=== PATIENT | female | born 1955 | race Two or more races ===

== ENCOUNTER 2018-12-18 18:07 | Inpatient (IN) | payer MEDICARE, MEDICAID ==
[~2018-12-18] VITALS: Ht 121.9 cm; Wt 74.8 kg
--- NOTE | 2018-12-18 18:10 | NUR ---
ED Nurse Note: pt presents from home via [facility] for c/o generalized malaise and increased dyspnea today. pt reports she has not had dialysis since . pt sitting in high fowlers with accessory muscle use noted lungs dim bilat noted. pt with left BKA and right AKA. pt noted to have skin hot to touch. md made aware of oral temp and blood cultures with lactic acid also drawn and sent. pt tolerates all well. speaks full sentences with some increased dyspnea. pt placed on panel monitor and O2 N/C 4L as o2 sat was 82% on r/a. pt with improved saturation to 98% on O2. pt relates dialysis shunt is on right thigh.
[2018-12-18] MEDS ORDERED: Nitroglycerin 2% oint pkt TOPIC ONE (18:15)
[2018-12-18 18:30] VITALS: BP 205/76
--- NOTE | 2018-12-18 18:50 | Emergency Room Report ---
History of Present Illness General Chief Complaint: Abnormal Labs Source: Patient, EMS Present Illness HPI Patient has a history of dialysis. She is due to have dialysis tomorrow. Today she felt that she was choking and had anxiety regarding that. Is worse when she lays back. Paramedics felt that she was in no respiratory distress and felt that her lung sounds were clear. She denies fevers. She does break out in sweats on occasion. She denies chest pain. She does have significant swelling. She still makes urine and denies dysuria. She is moving her bowels without difficulty. She denies joint pain at this time. Her fistula is in the right groin. 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 No fevers, chills, sore throat, palpitations, nausea, vomiting, diarrhea, abdominal pain, joint pain, rashes, depression, anxiety, visual changes, headache. Allergies: Coded Allergies: No Known Allergies (Unverified , 12/18/18) Patient History Past Medical History: see triage record Social History: Denies: smoking, alcohol use Social History Narrative From home Reviewed Nursing Documentation: PMH: Agreed; PSxH: Agreed Nursing Documentation-PMH Past Medical History: No History, Except For Hx Dialysis: Yes Review of Systems All Other Systems: negative except mentioned in HPI Physical Exam Vital Signs Date Time Temp Pulse Resp B/P (MAP) Pulse Ox O2 Delivery O2 Flow Rate FiO2 12/18/18 18:08 86 23 232/113 (152) 90 Room Air Sp02 EP Interpretation: reviewed, abnormal - Interpreted as low by me General Appearance: alert, non-toxic, Chronically Ill Eyes: bilateral eye PERRL, bilateral eye conjunctivae pale, bilateral eye other - Exophthalmos and lid edema ENT: moist mucus membranes Neck: full range of motion, supple Respiratory: chest non-tender, decreased breath sounds Cardiovascular #1: regular rate, rhythm, no JVD - To the angle of jaw sitting up, edema - Anasarca Cardiovascular #2: 2+ radial (L) Gastrointestinal: non tender, soft, decreased bowel sounds, overweight Genitourinary: no CVA tenderness Musculoskeletal: other - BKA left AKA right with fistula Neurologic: alert, motor strength/tone normal, DTRs symmetric, sensory intact, speech normal, oriented - X2 Psychiatric: depressed affect Skin: pallor, other - Sallow Procedures Critical Care Time Critical Care Time Total Critical Care Time: 30 min bedside evaluation and treatment excludes procedures (EKG). Reason for critical care: Pulmonary edema and hyperkalemia with renal failure Possible complications: hypotension, hypertension, ME, shock, arrhythmias, metabolic acidosis, end organ damage, respiratory failure. Interventions: Lasix, albuterol, calcium, Kayexalate and arrangement for emergent dialysis, nitroglycerin paste Course: Patient presented with dyspnea. Evaluation revealed pulmonary edema. Treated with nitroglycerin paste and Lasix. Further evaluation with hyperkalemia which was treated. Patient somewhat improved on oxygen and after albuterol. EKG without peak T waves. Several discussions with [place] regarding whether the patient is transferable. Review of repeat labs. Determined to be non-transferable. Discussion with admitting physician. Discussion with building supplies salesperson retail. Consultations: nursing staff, EMS, [place] physician, admitting physician, building supplies salesperson retail Performed by: Dr. Galo Tolerated well condition = serious Medical Decision Making Diagnostic Impression: Primary Impression: Pulmonary edema Qualified Codes: J81.0 - Acute pulmonary edema Additional Impressions: Hyperkalemia End stage renal disease on dialysis Anasarca ER Course Dialysis patient presents with orthopnea and feeling of choking. Differential includes pulmonary edema, electrolyte imbalance, acute myocardial infarction amongst others. Patient will be evaluated EKG, chest x-ray and labs. She initially will be treated with nitroglycerin paste and consideration for Lasix that she still makes urine. Most likely the patient will need to have dialysis. EKG without injury no peaked T waves. Chest x-ray pulmonary edema. Labs with normal white count. Elevated potassium with renal failure. No acidosis. Elevated BNP. Normal troponin. Treated for hyperkalemia with albuterol, Kayexalate, Lasix and calcium. Cramps L thigh. Morphine given. Discussed with Dr. Bañuelos who requests repeat K. Repeat 6.6. He is discussing with building supplies salesperson retail. Hemming And Tacking Machine Operator denied transfer. Discussed with Dr. Tirado regarding admission. Discussed with Dr. Lyles regarding the need for urgent dialysis. Patient not produced urine after Lasix. Consideration that she may be an inaccurate historian. Patient improved but needing dialysis. Laboratory Tests Test 12/18/18 18:35 12/18/18 20:55 White Blood Count 11.2 K/UL (4.8-10.8) H Red Blood Count 3.76 M/UL (4.20-5.40) L Hemoglobin 11.2 G/DL (12.0-16.0) L Hematocrit 34.8 % (37.0-47.0) L Mean Corpuscular Volume 92 FL (80-99) Mean Corpuscular Hemoglobin 29.7 PG (27.0-31.0) Mean Corpuscular Hemoglobin Concent 32.1 G/DL (32.0-36.0) Red Cell Distribution Width 15.7 % (11.6-14.8) H Platelet Count 262 K/UL (150-450) Mean Platelet Volume 6.5 FL (6.5-10.1) Neutrophils (%) (Auto) 84.0 % (45.0-75.0) H Lymphocytes (%) (Auto) 6.1 % (20.0-45.0) L Monocytes (%) (Auto) 7.4 % (1.0-10.0) Eosinophils (%) (Auto) 0.9 % (0.0-3.0) Basophils (%) (Auto) 1.5 % (0.0-2.0) Prothrombin Time 13.6 SEC (9.30-11.50) H Prothrombin Time INR 1.3 (0.9-1.1) H PTT 33 SEC (23-33) Sodium Level 144 MMOL/L (136-145) 143 MMOL/L (136-145) Potassium Level 6.7 MMOL/L (3.5-5.1) *H 6.6 MMOL/L (3.5-5.1) *H Chloride Level 105 MMOL/L (98-107) 106 MMOL/L (98-107) Carbon Dioxide Level 23 MMOL/L (21-32) 22 MMOL/L (21-32) Anion Gap 16 mmol/L (5-15) H 16 mmol/L (5-15) H Blood Urea Nitrogen 80 mg/dL (7-18) H 80 mg/dL (7-18) H Creatinine 11.0 MG/DL (0.55-1.30) H 10.9 MG/DL (0.55-1.30) H Estimate Glomerular Filtration Rate 3.5 mL/min (>60) 3.6 mL/min (>60) Glucose Level 134 MG/DL (74-106) H 139 MG/DL (74-106) H Calcium Level 8.5 MG/DL (8.5-10.1) 8.8 MG/DL (8.5-10.1) Total Bilirubin 0.4 MG/DL (0.2-1.0) Aspartate Amino Transferase (AST) 18 U/L (15-37) Alanine Aminotransferase (ALT) 17 U/L (12-78) Alkaline Phosphatase 163 U/L (46-116) H Total Creatine Kinase 100 U/L (26-308) Troponin I 0.006 ng/mL (0.000-0.056) Pro-B-Type Natriuretic Peptide 88915 pg/mL (0-125) H Total Protein 7.1 G/DL (6.4-8.2) Albumin 4.1 G/DL (3.4-5.0) Globulin 3.0 g/dL Albumin/Globulin Ratio 1.4 (1.0-2.7) EKG Diagnostic Results Rate: normal Rhythm: NSR ST Segments: no acute changes - No peak T waves Rhythm Strip Diag. Results EP Interpretation: yes Rhythm: NSR, no PVC's, no ectopy Chest X-Ray Diagnostic Results Chest X-Ray Diagnostic Results : Chest X-Ray Ordered: Yes # of Views/Limited/Complete: 1 View Indication: Shortness of Breath EP Interpretation: Yes Interpretation: no consolidation, no effusion, no pneumothorax, other - Pulmonary edema Impression: Other Electronically Signed by: Electronically signed by Vipin Galo MD Last Vital Signs Date Time Temp Pulse Resp B/P (MAP) Pulse Ox O2 Delivery O2 Flow Rate FiO2 12/19/18 00:47 Nasal Cannula 4.0 12/19/18 00:00 98.7 82 20 166/65 (98) 98 12/18/18 23:18 21 Status: improved Disposition: ADMITTED INPATIENT Condition: Serious Scripts Unable to Obtain Active Prescriptions or Reported Meds Vipin Galo MD Dec 18, 2018 18:50
[2018-12-18 19:04] LABS: BASOPHILS % (AUTO) 1.5 % (0.0-2.0); EOSINOPHILS % (AUTO) 0.9 % (0.0-3.0); HEMATOCRIT 34.8 % (37.0-47.0); HEMOGLOBIN 11.2 G/DL (12.0-16.0); LYMPHOCYTES % (AUTO) 6.1 % (20.0-45.0); MEAN CORPUSCULAR VOLUME 92 FL (80-99); MONOCYTES % (AUTO) 7.4 % (1.0-10.0); PLATELET COUNT 262 K/UL (150-450); RED BLOOD COUNT 3.76 M/UL (4.20-5.40); RED CELL DISTRIBUTION WIDTH 15.7 % (11.6-14.8); WHITE BLOOD COUNT 11.2 K/UL (4.8-10.8)
[2018-12-18 19:07] LABS: INR 1.3 (0.9-1.1)
[2018-12-18 19:22] LABS: ALANINE AMINOTRANSFERASE 17 U/L (12-78); ALBUMIN 4.1 G/DL (3.4-5.0); ALBUMIN/GLOBULIN RATIO 1.4 (1.0-2.7); ALKALINE PHOSPHATASE 163 U/L (46-116); ANION GAP 16 mmol/L (5-15); ASPARTATE AMINO TRANSFERASE 18 U/L (15-37); BILIRUBIN,TOTAL 0.4 MG/DL (0.2-1.0); BLOOD UREA NITROGEN 80 mg/dL (7-18); CALCIUM 8.5 MG/DL (8.5-10.1); CARBON DIOXIDE 23 MMOL/L (21-32); CHLORIDE 105 MMOL/L (98-107); CREATINE KINASE 100 U/L (26-308); SODIUM 144 MMOL/L (136-145)
--- NOTE | 2018-12-18 19:23 | NUR ---
ED Nurse Note: pt with meds as noted. pt report given to oncoming rn.
[2018-12-18 19:24] LABS: POTASSIUM 6.7 MMOL/L (3.5-5.1)
[2018-12-18] MEDS ORDERED: Albuterol ud Inhalation HHN ONE (19:30)
[2018-12-18] MEDS ORDERED: Calcium Gluconate 1gm/10ml vial IVP ONE (19:30)
[2018-12-18] MEDS ORDERED: Sodium Polystyrene Sulfonate 15gm Powder ORAL ONE (19:30)
--- NOTE | 2018-12-18 19:30 | NUR ---
ED Nurse Note: pt unable to urinate at this time. will await further orders
[2018-12-18] MEDS ORDERED: Morphine Sulfate 2mg/ml Inj(IV/IM USE ONLY) IVP ONE (20:00)
[2018-12-18 20:13] VITALS: BP 207/71
--- NOTE | 2018-12-18 20:30 | NUR ---
ED Nurse Note: reassessed pt for ability to urinate. pt is unable to do so at this time, pt refuses in and out catheter or rios catheter insertion
--- NOTE | 2018-12-18 20:31 | NUR ---
ED Nurse Note: ERMD AWARE PT IS UNABLE TO PROVIDE URINE SPECIMEN
--- NOTE | 2018-12-18 21:13 | NUR ---
PATIENTT DONT KNOW WHAT MEDS SHE TAKES LIST LEFT AT HOME
[2018-12-18 21:40] LABS: ANION GAP 16 mmol/L (5-15); BLOOD UREA NITROGEN 80 mg/dL (7-18); CALCIUM 8.8 MG/DL (8.5-10.1); CARBON DIOXIDE 22 MMOL/L (21-32); CHLORIDE 106 MMOL/L (98-107); CREATININE 10.9 MG/DL (0.55-1.30); SODIUM 143 MMOL/L (136-145)
[2018-12-18 21:45] LABS: POTASSIUM 6.6 MMOL/L (3.5-5.1)
[2018-12-18 22:35] VITALS: BP 184/71
[2018-12-18] MEDS ORDERED: Heparin Sod 1000 units/ml 10ml IV PRN (23:00)
--- NOTE | 2018-12-18 23:09 | NUR ---
ED Nurse Note: TELEPHONE REPORT GIVEN TO DAYAMI SILVERMAN
--- NOTE | 2018-12-18 23:12 | NUR ---
NURSE NOTES: Pt report received from [facility] via telephone. awaiting pt to arrive to unit.
[2018-12-18] MEDS ORDERED: Heparin 1000 units/ml 1ml Vial INJ PRN (23:15)
--- NOTE | 2018-12-18 23:18 | NUR ---
TRANSFER TO FLOOR: Patient transferred to SDU as ordered, per ERMD. Report given to DAYAMI SILVERMAN. Belongings and medications given PT.
--- NOTE | 2018-12-18 23:40 | NUR ---
NURSE NOTES: Pt brought up to SDU dept. Pt is alert and oriented times 4, and is able to follow commands. pt is on 4 L NC, satting at 99%, appears Short of breath. pt is on phototypesetting equipment monitor, shows NSR, no abnormalities noted. pt brought up with all belongings. bed low, locked, armed, call light within reach, bed rails up times 3. will establish plan of care.
[2018-12-19] VITALS: BP 166/65
--- NOTE | 2018-12-19 | NUR ---
NURSE NOTES: Pt gave Meds she has in her bag. Meds have been reconciled. Meds are to be placed in Pharmacy/ med bag. Additionally, pt states "the medication container shows meds are out dated, but the medication inside of container are current." this statement applies to pt Metoprolol, Midodrine, Hydrocodone, hydromorphone oral tabs. discharge specialist qi franco.
--- NOTE | 2018-12-19 01:00 | NUR ---
NURSE NOTES: Called [facility] and spoke with Princess. relayed message of MD order of stat dialysis. she stated she will let the nylon machine operator assistant analyst aware.
--- NOTE | 2018-12-19 01:20 | NUR ---
NURSE NOTES: Messaged FARROWING WORKER JOSE DE JESUS to alert FARROWING WORKER about pt BP 161/ 94. Asked for med to treat high BP and also for a diet order. awaiting new order.
--- NOTE | 2018-12-19 03:34 | NUR ---
NURSE NOTES: pt signed consent for Hemo Dialysis, Hemo Dialysis has started with Femi Cerda RN. Addendum: 12/19/18 at 0421 by CRYS MAYER RN NURSE NOTES: pt signed consent for Hemo Dialysis. Hemo Dialysis with Femi Cerda RN is to be started.
[2018-12-19] MEDS ORDERED: HYDROMORPHONE HC2 M1 ORAL (03:51)
[2018-12-19] MEDS ORDERED: MIDODRINE HCL5 MG ORAL (03:51)
[2018-12-19] MEDS ORDERED: ANECREAM515 GM (03:51)
[2018-12-19] MEDS ORDERED: REFRESH OPTIVE15 ML OP (03:51)
[2018-12-19] MEDS ORDERED: HYDROCORTISONE-30 GM TOPIC (03:51)
[2018-12-19] MEDS ORDERED: METOPROLOL TART25 MG ORAL (03:51)
[2018-12-19] MEDS ORDERED: AFRIN NASAL SPR30 ML NASAL (03:51)
[2018-12-19] MEDS ORDERED: CLARITIN10 M2 ORAL (03:51)
[2018-12-19] MEDS ORDERED: HYDROCODON-ACE1 EA13 ORAL (03:51)
[2018-12-19 04:00] VITALS: BP 159/69
--- NOTE | 2018-12-19 07:30 | NUR ---
HAND-OFF: Report given to Haley STOCK NANI. pt remains stable.
--- NOTE | 2018-12-19 07:30 | NUR ---
NURSE NOTES: Received report from Gina Gutierrez RN. Patient alert and oriented x 4, able to make needs known. Receiving O2 via nasal cannula @ 4L/min. Right thigh AV fistula noted with bruit and thrill. Right AC 20g saline lock patent and asymptomatic. Bed locked in lowest position with side rails up x 3. All needs attended to. Call light within reach. Will continue to monitor.
--- NOTE | 2018-12-19 07:55 | NUR ---
TRANSFER TO FLOOR: Patient transferred to telemetry room 207-1, per admission order. Report given to Conrado Donovan RN. Belongings given to receiving nurse. Patient's home medications sent to pharmacy by Gina Gutierrez RN.
[2018-12-19] MEDS ORDERED: HYDROmorphone 2mg tab ORAL PRN (08:15)
--- NOTE | 2018-12-19 08:39 | NUR ---
NURSE NOTES: Received repot from DAYAMI De Leon. The patient is stable without acute distress or shortness of breath. The patient's bed in the lowest position, call light in reach, and fall and aspiration precaution reinforced. IV site on R AC 20G intact and patent. The patient has R thigh AV fistula. The patient is on 4L NC and SpO2 is 95%. The patient just completed hemodialysis on 12/19 and 3L out. Medication reconciliation done by step down unit nurse and put the home medication to the pharmacy by the step down nurse. Skin is intact. The patient's belongings checked with the patient and DAYAMI De Leon and signed by two nurses. Dr. Tirado at the bedside to assess the patient and received clonidine order for elevated blood pressure. Notified abnormal labs including potassium, BUN, and Cr and no new order received yet. Will continue plan of care.
--- NOTE | 2018-12-19 08:39 | NUR ---
NURSE NOTES: Notified Dr. Tirado regarding hyperkalemia, abnormal BUN and Cr. Dr. Tirado would like to Dr. Carballo to review and order. Notified to Dr. Lyles. Will continue plan of care. Will carry out the order as soon as receives it.
[2018-12-19 09:00] VITALS: BP 152/62
[2018-12-19] MEDS: HYDROcodone/Acetamin 10/325 tab ORAL SCH ×3 (09:09→20:15)
[2018-12-19] MEDS: Metoprolol 25mg tab ORAL SCH ×2 (09:10→18:00)
[2018-12-19] MEDS: Hydrocortisone 1% Cr 30gm TOPIC SCH (09:41)
[2018-12-19] MEDS: Oxymetazoline 0.05% Na Spray 30ml NASAL SCH ×2 (09:41→18:00)
--- NOTE | 2018-12-19 11:50 | Diagnostic Imaging Report ---
Indication: Dyspnea Comparison: None A single view chest radiograph was obtained. Findings: Interstitial edema, prominent pulmonary vascularity and a right pleural effusion are demonstrated. Cardiomegaly is present. Bones are osteopenic. IMPRESSION: Congestive heart failure. Right pleural effusion
[2018-12-19 12:00] VITALS: BP 115/50
[2018-12-19 12:02] LABS: ALANINE AMINOTRANSFERASE 14 U/L (12-78); ALBUMIN 3.4 G/DL (3.4-5.0); ALBUMIN/GLOBULIN RATIO 1.1 (1.0-2.7); ALKALINE PHOSPHATASE 123 U/L (46-116); ANION GAP 13 mmol/L (5-15); ASPARTATE AMINO TRANSFERASE 10 U/L (15-37); BILIRUBIN,TOTAL 0.5 MG/DL (0.2-1.0); BLOOD UREA NITROGEN 52 mg/dL (7-18); CALCIUM 8.7 MG/DL (8.5-10.1); CARBON DIOXIDE 27 MMOL/L (21-32); CHLORIDE 101 MMOL/L (98-107); CREATININE 8.1 MG/DL (0.55-1.30); POTASSIUM 4.6 MMOL/L (3.5-5.1); SODIUM 141 MMOL/L (136-145)
[2018-12-19 13:00] LABS: EOSINOPHILS % (AUTO) 0.7 % (0.0-3.0); HEMATOCRIT 28.6 % (37.0-47.0); LYMPHOCYTES % (AUTO) 12.9 % (20.0-45.0); MEAN CORPUSCULAR VOLUME 92 FL (80-99); MONOCYTES % (AUTO) 10.6 % (1.0-10.0); NEUTROPHILS % (AUTO) 74.8 % (45.0-75.0); PLATELET COUNT 213 K/UL (150-450); RED BLOOD COUNT 3.09 M/UL (4.20-5.40); RED CELL DISTRIBUTION WIDTH 16.3 % (11.6-14.8); WHITE BLOOD COUNT 7.5 K/UL (4.8-10.8)
--- NOTE | 2018-12-19 13:50 | History & Physical ---
History of Present Illness General Reason for Hospitalization: Abnormal Labs Present Illness Allergies: Coded Allergies: No Known Allergies (Unverified , 12/18/18) Medication History Scheduled Hydrocodone Bit/Acetaminophen 10-325* (Hydrocodon-Acetaminophn 10-325*), 1 TAB ORAL Q6H, (Reported) Loratadine (Claritin), 10 MG ORAL DAILY, (Reported) Midodrine* (Proamatine*), 5 MG ORAL THREE TIMES A DAY, (Reported) Oxymetazoline HCl (Afrin), 2 SPRAY NASAL TWICE A DAY, (Reported) Scheduled PRN Hydromorphone Hcl (Hydromorphone Hcl), 2 MG ORAL EVERY 8 HOURS PRN for For Pain, (Reported) Miscellaneous Medications Carboxymethylcellulos/Glycerin (Refresh Optive Eye Drops), 15 ML OP, (Reported) Hydrocortisone/Aloe Vera 1%* (Hydrocortisone-Aloe 1% Cream*), 1 APPLIC TOPIC, ( Reported) Lidocaine (Anecream5), 30, (Reported) Metoprolol Tartrate* (Metoprolol Tartrate*), 25 MG ORAL, (Reported) Patient History Healthcare decision maker pt self Resuscitation status Full Code Advanced Directive on File No Review of Systems Review of Symptoms General ROS: no weight loss or fever, reports light headedness Psychological ROS: endorses anxiety Ophthalmic ROS: no visual changes or eye irritation ENT ROS: no nasal congestion, hearing loss, dizziness Allergy and Immunology ROS: no allergic symptoms or urticaria Hematological and Lymphatic ROS: no swollen glands, unusual bleeding or bruising Endocrine ROS: no polyuria, polydipsia, weight changes, endorses intermittent sweating/denies fevers Respiratory ROS: no cough, shortness of breath, or wheezing Cardiovascular ROS: no chest pain or dyspnea on exertion, endorses lower leg swelling Gastrointestinal ROS: denies abdominal pain, bright red blood in stool. Musculoskeletal ROS: no myalgias, endorses arthralgias Neurological ROS: no TIA or stroke symptoms Dermatological ROS: no new or changing skin lesions, rashes or pruritis Physical Exam Physical Exam General appearance: alert, cooperative, anxious appears older than stated age, anasarca Head: Normocephalic, without obvious abnormality, atraumatic/ptosis Eyes: conjunctivae/corneas clear. PERRL, EOM's intact. Fundi benign Throat: Lips, mucosa, and tongue normal. Teeth and gums normal Neck: supple, symmetrical, trachea midline, no adenopathy, thyroid: not enlarged, symmetric, no tenderness/mass/nodules, no carotid bruit and no JVD Lungs: clear to auscultation bilaterally Heart: regular rate and rhythm, no murmur, hypotensive Abdomen: soft/rounded, morbidly obese, non-tender. Bowel sounds normal. No masses, no organomegaly Extremities: edematous extremities, no cyanosis Pulses: 2+ and symmetric Skin: Skin color, texture, turgor normal. No rashes or lesions Neurologic: Grossly normal Last 24 Hour Vital Signs Date Time Temp Pulse Resp B/P (MAP) Pulse Ox O2 Delivery O2 Flow Rate FiO2 12/19/18 11:07 2.0 12/19/18 09:10 82 152/62 12/19/18 04:00 4.0 12/19/18 04:00 98.2 87 20 159/69 (99) 99 12/19/18 04:00 81 12/19/18 00:47 Nasal Cannula 4.0 12/19/18 00:00 98.7 82 20 166/65 (98) 98 12/18/18 23:18 98.4 81 22 177/63 97 Room Air 4.0 21 12/18/18 22:35 98.6 82 16 184/71 97 Room Air 4.0 21 12/18/18 20:52 206/64 12/18/18 20:28 98.3 12/18/18 20:13 98.3 83 29 207/71 97 Room Air 4.0 21 12/18/18 19:38 99 25 99 Room Air 21 101 26 97 12/18/18 19:18 205/76 12/18/18 19:15 101 30 Nasal Cannula 4.0 12/18/18 18:30 100.0 101 30 205/76 82 Room Air 12/18/18 18:30 30 98 Nasal Cannula 4.0 12/18/18 18:08 86 23 232/113 (152) 90 Room Air Intake and Output 12/18/18 12/19/18 19:00 07:00 Intake Total 0 ml Output Total 3000 ml Balance 0 ml -3000 ml Intake Oral 0 ml Output Hemodialysis UF 3000 ml Laboratory Tests Test 12/18/18 18:35 12/18/18 20:55 12/19/18 11:15 White Blood Count 11.2 K/UL (4.8-10.8) H 7.5 K/UL (4.8-10.8) Red Blood Count 3.76 M/UL (4.20-5.40) L 3.09 M/UL (4.20-5.40) L Hemoglobin 11.2 G/DL (12.0-16.0) L 9.0 G/DL (12.0-16.0) L Hematocrit 34.8 % (37.0-47.0) L 28.6 % (37.0-47.0) L Mean Corpuscular Volume 92 FL (80-99) 92 FL (80-99) Mean Corpuscular Hemoglobin 29.7 PG (27.0-31.0) 29.2 PG (27.0-31.0) Mean Corpuscular Hemoglobin Concent 32.1 G/DL (32.0-36.0) 31.6 G/DL (32.0-36.0) L Red Cell Distribution Width 15.7 % (11.6-14.8) H 16.3 % (11.6-14.8) H Platelet Count 262 K/UL (150-450) 213 K/UL (150-450) Mean Platelet Volume 6.5 FL (6.5-10.1) 6.3 FL (6.5-10.1) L Neutrophils (%) (Auto) 84.0 % (45.0-75.0) H 74.8 % (45.0-75.0) Lymphocytes (%) (Auto) 6.1 % (20.0-45.0) L 12.9 % (20.0-45.0) L Monocytes (%) (Auto) 7.4 % (1.0-10.0) 10.6 % (1.0-10.0) H Eosinophils (%) (Auto) 0.9 % (0.0-3.0) 0.7 % (0.0-3.0) Basophils (%) (Auto) 1.5 % (0.0-2.0) 1.0 % (0.0-2.0) Prothrombin Time 13.6 SEC (9.30-11.50) H Prothromb Time International Ratio 1.3 (0.9-1.1) H Activated Partial Thromboplast Time 33 SEC (23-33) Sodium Level 144 MMOL/L (136-145) 143 MMOL/L (136-145) 141 MMOL/L (136-145) Potassium Level 6.7 MMOL/L (3.5-5.1) *H 6.6 MMOL/L (3.5-5.1) *H 4.6 MMOL/L (3.5-5.1) Chloride Level 105 MMOL/L (98-107) 106 MMOL/L (98-107) 101 MMOL/L (98-107) Carbon Dioxide Level 23 MMOL/L (21-32) 22 MMOL/L (21-32) 27 MMOL/L (21-32) Anion Gap 16 mmol/L (5-15) H 16 mmol/L (5-15) H 13 mmol/L (5-15) Blood Urea Nitrogen 80 mg/dL (7-18) H 80 mg/dL (7-18) H 52 mg/dL (7-18) H Creatinine 11.0 MG/DL (0.55-1.30) H 10.9 MG/DL (0.55-1.30) H 8.1 MG/DL (0.55-1.30) H Estimat Glomerular Filtration Rate 3.5 mL/min (>60) 3.6 mL/min (>60) 5.0 mL/min (>60) Glucose Level 134 MG/DL (74-106) H 139 MG/DL (74-106) H 169 MG/DL (74-106) H Calcium Level 8.5 MG/DL (8.5-10.1) 8.8 MG/DL (8.5-10.1) 8.7 MG/DL (8.5-10.1) Total Bilirubin 0.4 MG/DL (0.2-1.0) 0.5 MG/DL (0.2-1.0) Aspartate Amino Transf (AST/SGOT) 18 U/L (15-37) 10 U/L (15-37) L Alanine Aminotransferase (ALT/SGPT) 17 U/L (12-78) 14 U/L (12-78) Alkaline Phosphatase 163 U/L (46-116) H 123 U/L (46-116) H Total Creatine Kinase 100 U/L (26-308) Troponin I 0.006 ng/mL (0.000-0.056) Pro-B-Type Natriuretic Peptide 79835 pg/mL (0-125) H Total Protein 7.1 G/DL (6.4-8.2) 6.5 G/DL (6.4-8.2) Albumin 4.1 G/DL (3.4-5.0) 3.4 G/DL (3.4-5.0) Globulin 3.0 g/dL 3.1 g/dL Albumin/Globulin Ratio 1.4 (1.0-2.7) 1.1 (1.0-2.7) Microbiology Date/Time Source Procedure Growth Status 12/18/18 20:20 Rectum Received Height (Feet): 4 Height (Inches): 0.00 Weight (Pounds): 165 Medications Current Medications Medications (Trade) Dose Ordered Sig/Sahil Route PRN Reason Start Time Stop Time Status Last Admin Dose Admin Acetaminophen/ Hydrocodone Bitart ([place] 103[address]) 1 tab Q6H ORAL 12/19/18 08:15 12/26/18 08:14 12/19/18 09:09 Clonidine HCl (Catapres Tab) 0.1 mg Q4H PRN ORAL SBP > 150 12/19/18 09:00 01/18/19 08:59 Heparin Sodium (Porcine) (Heparin 5000 units/ml) 5,000 units BID SUBQ 12/19/18 18:00 01/18/19 17:59 Heparin Sodium (Porcine) (Heparin Sod 1000 units/ml 10ml) 2,000 unit ONCE PRN IV DIALYSIS 12/18/18 23:00 Heparin Sodium (Porcine) (Heparin) 1,000 unit POSTHD PRN INJ POST DIALYSIS 12/18/18 23:15 Hydrocortisone (Hydrocortisone) 1 applic DAILY TOPIC 12/19/18 09:00 01/18/19 08:59 12/19/18 09:41 Hydromorphone HCl (Dilaudid) 2 mg EVERY 8 HOURS PRN ORAL For Pain 12/19/18 08:15 12/26/18 08:14 Metoprolol Tartrate (Lopressor) 12.5 mg BID ORAL 12/19/18 09:00 01/18/19 08:59 12/19/18 09:10 Midodrine (Pro-Amatine) 5 mg THREE TIMES A DAY ORAL 12/19/18 09:00 01/18/19 08:59 12/19/18 12:20 Oxymetazoline HCl (Afrin Nasal [place]) 2 spray TWICE A DAY NASAL 12/19/18 09:00 01/18/19 08:59 12/19/18 09:41 Sodium Chloride 1,000 ml @ 500 mls/hr Q2H PRN IVLG sbp<90 during hd 12/18/18 23:03 01/17/19 23:02 Assessment/Plan Status: stable Status Narrative This is a 63 year old female who arrived to the ED endorsing orthopnea, anxiety and a sensation of choking. She denied fever, chest pain or SOB. She is an ESRD , HD patient who just received HD. Assessment/Plan: HD today CBC, BMP tomorrow Continue to medication as planned. Monitor for worsening anemia. MIPS Hospital declaration INPATIENT level of care is warranted for this patient because patient is a 89 year old with who presents with suspicion of . I have a high level of concern because . Patient is at high risk for . Plan of care/treatment include . Patient care is expected to be greater than 2 midnights. OBSERVATION level of care is warranted for this patient. Patient is a 89 year old with who presents with . Patient will be admitted for 1 midnight, but if additional night(s) is/are necessary, patient will be converted to inpatient status for the entire hospitalization Disposition: Once the patient is stable to leave the hospital, I anticipate the patient will likely be discharged to the following environment: Estimated discharge date: I spent 70 minutes on this patient's case, and minutes was dedicated to counseling and/or care coordination. MIPS (Merit-based Incentive Payment System) Applicable CPT: 03047, 92520 CHECK ALL THAT ARE MET: Measure #5 (CHF): All ages. Prescribe DURAN/ARB upon discharge for patients with left ventricular systolic dysfunction. If not, the reason is clearly documented in the medical chart. Measure #8 (CHF): All ages. Prescribe a beta josiah upon discharge for patients with left ventricular systolic dysfunction. If not, the reason is clearly documented in the medical chart. Measure #47 Advance care plan or surrogate decision maker documented in the medical record. Measure #130 The provider has documented, updated, or reviewed the patients current medication list and has documented it in the patients note. Measure #374 (All): Send report to referring provider. Measure #407(Sepsis due to MSSA bacteremia): Age 18+ Patient treated with a beta-lactam antibiotic (Nafcillin, Oxacillin or Cefazolin) as definitive therapy. MEDICAL COMPLEXITY High complexity medical decision making (need 2/3 categories) Problem - need 4 points Acute/new problem with new plan for workup (4 points, 1 max) Acute/new problem without additional workup (3 points, 1 max) Unstable chronic problem actively being managed (2 point each, 2 max) Stable chronic problem actively being managed (1 point each, 2 max) Self-limited/transient process (constipation, muscle ache, etc) (1 point each , 2 max) Data - need 4 points Reviewed labs/imaging studies (1 points, 2 max) Independent review of imaging (EKG, xrays, etc) (2 points, 2 max) Discussed case with consult/other MD/RN (2 points, 2 max) High Risk - qualify if have one of the following: Severe exacerbation of acute problem, acute mental status change, IV narcotics , monitoring drug levels (vancomycin, INR, tacrolimus etc) Liset Ellis N.P. Dec 19, 2018 13:50
[2018-12-19 14:31] LABS: ANION GAP 10 mmol/L (5-15); BLOOD UREA NITROGEN 53 mg/dL (7-18); CALCIUM 8.5 MG/DL (8.5-10.1); CARBON DIOXIDE 28 MMOL/L (21-32); CHLORIDE 101 MMOL/L (98-107); POTASSIUM 4.6 MMOL/L (3.5-5.1); SODIUM 139 MMOL/L (136-145)
--- NOTE | 2018-12-19 15:34 | NUR ---
*-* INSURANCE *-* ALL AVAILABLE CLINICALS HAVE BEEN FAXED TO: [facility] F:[phone] Addendum: 12/20/18 at 1106 by RACHNA HILLS [facility] REF#[id number] NO THERMOSTAT MAKER ASSIGNED YET #[phone] FAX#[phone] [place] [phone] REVIEWS/CLINICALS
[2018-12-19 16:00] VITALS: BP 141/56
--- NOTE | 2018-12-19 16:00 | History and Physical Report ---
DATE OF ADMISSION: 12/18/2018 REASON FOR ADMISSION: Fluid overload, renal failure. HISTORY OF PRESENT ILLNESS: The patient is a 63-year-old female who was due for dialysis. The patient noted to have increasing shortness of breath and increased respiratory distress. The patient had no chest pain. Noted to be in the emergency room to be in fluid overload, now being admitted for need for acute dialysis. The patient is comfortable at present. PAST MEDICAL HISTORY: Notable for the above, end-stage renal disease, chronic pain syndrome, orthostatic hypotension, nasal congestion, and hypertension. MEDICATIONS: Reviewed. ALLERGIES: Reviewed. SOCIAL HISTORY: The patient is dialysis dependent. REVIEW OF SYSTEMS: Otherwise negative. PHYSICAL EXAMINATION: GENERAL: A well-developed female, comfortable. VITAL SIGNS: Blood pressure 159/69, pulse 120. Saturations 99% on 4 L. Afebrile. HEENT: Negative. NECK: Supple. No adenopathy. LUNGS: With some basilar crackles. CARDIAC: S1, S2. Regular rate and rhythm. ABDOMEN: Soft, nontender. EXTREMITIES: No cyanosis or clubbing. The patient has a below-knee amputation, left and above-knee amputation, right. The patient has a fistula in place. NEUROLOGIC: Grossly nonfocal. LABORATORY DATA: Otherwise reviewed. IMPRESSION: 1. Pulmonary edema. 2. Fluid overload. 3. Hyperkalemia. 4. End-stage renal disease. 5. Anasarca. 6. Prior amputations. 7. Abnormal EKG. RECOMMENDATIONS: 1. Supportive care. 2. Hemodialysis with ultrafiltration. 3. Stabilize and monitor. 4. Follow up potassium levels and electrolytes and discharge back to [facility] once stable and cleared by Nephrology. Pito Tirado M.D. DR: OMAR JOB#: [id number] CC:
--- NOTE | 2018-12-19 16:17 | NUR ---
NURSE NOTES: Dr. Parker's BUS ASSISTANT, CARLOS Ellis, at the bedside assessed the patient. CARLOS Ellis ordered BMP and CBC, and order carried out. Notified CARLOS Ellis regarding HD today with 3L output and abnormal lab result. The patient is stable without acute distress or shortness of breath .Will continue plan fo care.
--- NOTE | 2018-12-19 17:00 | NUR ---
NURSE NOTES: Notified Dr. Tirado and CARLOS Ellis regarding severe degree of bilateral eyelid edema and blurry vision. Dr. Tirado ordered CT of head w/o contrast stat. Carried out the order. Called CT department and the patient will be picked up in 30 minute. Will continue plan of care.
--- NOTE | 2018-12-19 17:43 | NUR ---
NURSE NOTES: Notified Dr. Tirado that the patient cannot lie flat for CT of head and face stat due to anxiety and posture. CT transporters were at the bedside to take the patient but was told that they cannot take it since the patient cannot lie flat. The patient verbalized that she thinks that she can tolerate the testing if she can get sedated. Notified to Dr. Tirado regarding the patient's request. Dr. Tirado ordered Ativan 1mg IVP once prior to CT of head and face stat for severe degree of bilateral eyelid swelling and blurry vision. Will carry out the order now and will continue plan of care.
[2018-12-19] MEDS ORDERED: LORazepam Inj 2mg/ml 1ml IV SCH (17:45)
[2018-12-19] MEDS ORDERED: Heparin 5000 units/ml inj SUBQ SCH (18:00)
--- NOTE | 2018-12-19 18:10 | NUR ---
NURSE NOTES: The patient received Ativan prior to CT of head and face per Dr. Tirado's order. The patient is down for CT of head and face. Off tele order initiated. Will continue plan of care as soon the patient comes back to the floor.
--- NOTE | 2018-12-19 18:40 | NUR ---
NURSE NOTES: Received a call from CT department that the patient cannot lie flat even with Ativan and tries to change the position into into semi-rosales's position. The primary nurse was told that CT transporters will bring the patient back up to the floor since the patient cannot tolerate the test due to anxiety and positional issue. Notified Dr. Tirado that the CT of head and face were not done due to anxiety and postural issue. Will wait for Dr. Tirado's response. Will continue plan of care as soon as the patient comes back to the floor.
--- NOTE | 2018-12-19 19:10 | NUR ---
HAND-OFF: Report given to DAYAMI Chandler. The patient is stable without acute distress or shortness of breath. The patient's bed in the lowest position, call light in reach, and fall and aspiration precaution reinforced. IV site on R AC 20G intact and patent. Informed DAYAMI Chandler that stat CT of head and face for bilateral eyelid edema and blurry vision were not done due to anxiety and postural issue. Asked DAYAMI Chandler to follow up with Dr. Tirado. Endorsed plan of care.
--- NOTE | 2018-12-19 19:23 | NUR ---
CASE MANAGEMENT: REVIEW 63Y/FEMALE BIBA FROM HOME CC: COUGHING AND CHOKING . HX LEFT BKA . RIGHT AKA SI: PULMONARY EDEMA . ESRD ON HD T 100.0 HR 101 RR 30 BP 232/113 90% ROOM AIR WBC 11.2 H/H 11.2/34.8 IS: LASIX IV X1 NITRO TROPICAL 2 INCHES KAYEXALATE PO X1 ALBUTEROL HHN X1 CALCIUM GLUCONATE IV X1 MORPHINE IV X1 HYDRALAZINE IV X1 PATIENT ADMITTED TO TELEMETRY UNIT 12/18/2018 DCP: PATIENT IS FROM HOME
--- NOTE | 2018-12-19 19:25 | NUR ---
NURSE NOTES: Received report from DAYAMI Tate. Patient in bed asleep showing no signs of acute distress. HOB 45deg. Respiration even and non labored on 2L NC. No sob noted. Bed side rails up x3. Bed in lowest position, wheels locked and alarm on. Call button within reach. All needs attended and met. Will cont. to monitor.
[2018-12-19 20:00] VITALS: BP 150/56
[2018-12-20] VITALS: BP 146/63
[2018-12-20] MEDS: HYDROcodone/Acetamin 10/325 tab ORAL SCH ×3 (01:58→13:41)
[2018-12-20 04:00] VITALS: BP 151/77
--- NOTE | 2018-12-20 07:12 | NUR ---
HAND-OFF: Report given to DAYAMI Pitts.
--- NOTE | 2018-12-20 07:30 | NUR ---
NURSE NOTES: Received report from Deena RN. Pt AOX2 or 3 and no c/o pain. Sinus rhythm noted on linoleum layer apprentice. IV site in RAC 20G SL patent and asymptomatic. Bed in lowest position and locked. No acute distress noted. Pt scheduled for dialysis today. Call light within easy reach. Will continue to plan of care.
[2018-12-20 08:00] VITALS: BP 134/72
[2018-12-20] MEDS ORDERED: Heparin 5000 units/ml inj SUBQ SCH (09:00)
[2018-12-20] MEDS: Metoprolol 25mg tab ORAL SCH ×2 (09:00→18:11)
--- NOTE | 2018-12-20 09:31 | General Progress Note ---
Assessment/Plan Status: stable Assessment/Plan: IMPRESSION: 1. Pulmonary edema. 2. Fluid overload. 3. Hyperkalemia. 4. End-stage renal disease. 5. Anasarca. 6. Prior amputations. 7. Abnormal EKG. 8. eye lid swelling PLAN dc to [facility] needs CT head and face needs optho evaluation not toxic HD with improvement in K monitor fluid status Subjective Allergies: Coded Allergies: No Known Allergies (Unverified , 12/18/18) Subjective some eye lid swelling refused CT Objective Last 24 Hour Vital Signs Date Time Temp Pulse Resp B/P (MAP) Pulse Ox O2 Delivery O2 Flow Rate FiO2 12/20/18 04:00 67 12/20/18 04:00 97.7 63 18 151/77 (101) 98 12/20/18 00:00 71 12/20/18 00:00 99.1 68 18 146/63 (90) 97 12/19/18 21:00 Nasal Cannula 2.0 12/19/18 20:00 98.3 65 17 150/56 (87) 97 12/19/18 20:00 65 12/19/18 18:00 64 155/60 12/19/18 16:00 98.1 61 18 141/56 (84) 100 12/19/18 16:00 60 12/19/18 16:00 2.0 12/19/18 12:00 98.8 72 18 115/50 (71) 100 12/19/18 12:00 2.0 12/19/18 12:00 64 12/19/18 11:07 2.0 Intake and Output 12/19/18 12/20/18 19:00 07:00 Intake Total 225 ml Balance 225 ml Intake Oral 225 ml Laboratory Tests 12/19/18 11:15: White Blood Count 7.5, Red Blood Count 3.09L, Hemoglobin 9.0L, Hematocrit 28.6L , Mean Corpuscular Volume 92, Mean Corpuscular Hemoglobin 29.2, Mean Corpuscular Hemoglobin Concent 31.6L, Red Cell Distribution Width 16.3H, Platelet Count 213, Mean Platelet Volume 6.3L, Neutrophils (%) (Auto) 74.8, Lymphocytes (%) (Auto) 12.9L, Monocytes (%) (Auto) 10.6H, Eosinophils (%) (Auto ) 0.7, Basophils (%) (Auto) 1.0, Sodium Level 141, Potassium Level 4.6, Chloride Level 101, Carbon Dioxide Level 27, Anion Gap 13, Blood Urea Nitrogen 52H, Creatinine 8.1H, Estimat Glomerular Filtration Rate 5.0, Glucose Level 169H , Calcium Level 8.7, Total Bilirubin 0.5, Aspartate Amino Transf (AST/SGOT) 10L , Alanine Aminotransferase (ALT/SGPT) 14, Alkaline Phosphatase 123H, Total Protein 6.5, Albumin 3.4, Globulin 3.1, Albumin/Globulin Ratio 1.1 12/19/18 14:15: Sodium Level 139, Potassium Level 4.6, Chloride Level 101, Carbon Dioxide Level 28, Anion Gap 10, Blood Urea Nitrogen 53H, Creatinine 8.0H, Estimat Glomerular Filtration Rate 5.0, Glucose Level 115H, Calcium Level 8.5 Height (Feet): 4 Height (Inches): 0.00 Weight (Pounds): 164 Objective WDWN NAD clear breath sounds bilaterally without rhonchi or wheeze [id number] without MRG NABS nontender no HSM no CCE nonfocal eye lid swelling obese alert and oriented x3 Pito Tirado MD Dec 20, 2018 09:31
[2018-12-20] MEDS: Oxymetazoline 0.05% Na Spray 30ml NASAL SCH ×2 (09:41→18:10)
[2018-12-20] MEDS: Hydrocortisone 1% Cr 30gm TOPIC SCH (09:45)
--- NOTE | 2018-12-20 11:01 | NUR ---
RD ASSESSMENT & RECOMMENDATIONS SEE CARE ACTIVITY FOR COMPLETE ASSESSMENT DAILY ESTIMATED NEEDS: Needs based on ESRD on HD, 54kg adj wt for BL AMP 25-30 kcals/kg 5317-9014 total kcals 1.2-1.8 g protein/kg 65-97 g total protein Fluid per MD, on Hd NUTRITION DIAGNOSIS: Increased kcal and pro needs r/t ESRD as evidenced by pt on HD PO DIET RECOMMENDATIONS: Maintain renal diet ADDITIONAL RECOMMENDATIONS: 1) SANDWICH PEDDLER eval for appropriate texture 2) Add Nepro BID + snacks in b/w meals 3) Hypoglycemics prn/ ssi (BG 115-169)
--- NOTE | 2018-12-20 11:22 | NUR ---
LICENSED GUIDE NOTES SPOKE WITH JOHNATHON @ [facility], MADE AWARE OF PT'S ORDER TO TRANSFER. REQUESTED CLINICALS AND ORDER TO BE FAXED TO [phone]. WAITING FOR CALL BACK. Addendum: 12/20/18 at 1504 by LUCHO TAYLOR RN RN SPOKE WITH REESE DIEGO FROM [facility], REQUESTING CT RESULTS. MADE AWARE OF CT NOT COMPLETED DUE TO PT UNABLE TO LAY DOWN FOR PROCEDURE. WAITING FOR UPDATES ON TRANSFER.
[2018-12-20 12:00] VITALS: BP 117/65
[2018-12-20] MEDS ORDERED: Lidocaine 1% MPF 10mg/ml 5ml INJ PRN ×2 (13:30→13:45)
--- NOTE | 2018-12-20 13:43 | Nephrology Progress Note ---
Assessment/Plan Problem List: (1) ESRD (end stage renal disease) (2) Anasarca (3) Hyperkalemia (4) Pulmonary edema Plan HD today D/C pt to [facility]) Subjective Subjective Endorses ongoing swelling usually resolved by HD. Objective Objective Last 24 Hour Vital Signs Date Time Temp Pulse Resp B/P (MAP) Pulse Ox O2 Delivery O2 Flow Rate FiO2 12/20/18 12:00 98.3 73 18 117/65 (82) 94 12/20/18 09:00 67 151/77 12/20/18 08:00 97.6 71 20 134/72 (92) 95 12/20/18 04:00 67 12/20/18 04:00 97.7 63 18 151/77 (101) 98 12/20/18 00:00 71 12/20/18 00:00 99.1 68 18 146/63 (90) 97 12/19/18 21:00 Nasal Cannula 2.0 12/19/18 20:00 98.3 65 17 150/56 (87) 97 12/19/18 20:00 65 12/19/18 18:00 64 155/60 12/19/18 16:00 98.1 61 18 141/56 (84) 100 12/19/18 16:00 60 12/19/18 16:00 2.0 Intake and Output 12/19/18 12/20/18 19:00 07:00 Intake Total 225 ml Balance 225 ml Intake Oral 225 ml Laboratory Tests 12/19/18 14:15: Sodium Level 139, Potassium Level 4.6, Chloride Level 101, Carbon Dioxide Level 28, Anion Gap 10, Blood Urea Nitrogen 53H, Creatinine 8.0H, Estimat Glomerular Filtration Rate 5.0, Glucose Level 115H, Calcium Level 8.5 Height (Feet): 4 Height (Inches): 0.00 Weight (Pounds): 164 General Appearance: no apparent distress, alert EENT: PERRL/EOMI Neck: non-tender, normal alignment, supple Cardiovascular: normal peripheral pulses, normal rate Respiratory/Chest: lungs clear, normal breath sounds Abdomen: non tender, soft, no organomegaly Extremities: non-tender, normal inspection Neurologic: alert, normal mood/affect Liset Ellis N.P. Dec 20, 2018 13:43
--- NOTE | 2018-12-20 15:10 | Cardiology Report ---
APPROVED REPORT EKG Measurement Heart [id number] Normal sinus rhythm Low voltage QRS Cannot rule out Anterior infarct, age undetermined Abnormal ECG
--- NOTE | 2018-12-20 15:50 | NUR ---
NURSE NOTES: Spoke to Sayra vocational case manager from [place] regarding the patient's condition and bed availability. Bed might be available after 7pm today. Sayra #[phone]
[2018-12-20 16:00] VITALS: BP_SYST 150; BP_SYST 162; BP_SYST 163; BP_DIAS 71; BP_DIAS 73
--- NOTE | 2018-12-20 16:00 | NUR ---
NURSE NOTES: Hemodialysis done and 1L of fluid removed from dialysis per HD RN
[2018-12-20 18:11] VITALS: BP 163/71
--- NOTE | 2018-12-20 19:54 | NUR ---
NURSE NOTES: Received pt from DAYAMI Pitts. Pt asleep. Bed in lowest position. Call light within reach. Min called and gave report to DAYAMI Rangel at [facility]. Pickup time set for 8:30pm. Will continue to monitor.
--- NOTE | 2018-12-20 19:54 | NUR ---
HAND-OFF: Report given to Kamila STOCK. Pt remains stable. Report given to Claire STOCK at [facility].
--- NOTE | 2018-12-20 20:22 | NUR ---
HAND-OFF: Report given to Ambulance estrellita (PRN). Pt intransit to [facility] room [id number]
--- NOTE | 2018-12-21 10:40 | Discharge Summary ---
Discharge Summary Discharge Summary _ DATE OF ADMISSION: 12/18/2018 DATE OF DISCHARGE: 12/20/2018 DISCHARGED BY: Dr. Tirado REASON FOR ADMISSION: 63 years old female with past medical history of end-stage renal disease, on hemodialysis, hypertension, chronic pain syndrome, orthostatic hypotension, was due for dialysis for the next day. Patient noted to have increased shortness of breath and increased respiratory distress. Patient was brought for evaluation by EMS to ER. Patient also reported that she felt she was choking and was anxious. Symptoms were worse, when she is lying down. Patient denied chest pain. Upon evaluation vital signs reveal significantly elevated blood pressure 232/ 113. Pulse oximetry was 90% on room air. Laboratory work-up revealed mild leukocytosis WBC 11.2, hemoglobin 11.2, hematocrit 34.8. BUN 80, creatinine 11. Potassium 6.7. Stable LFT. Albumin 4.1. Troponin -0.006. pro BNP 68080. EKG revealed sinus rhythm, no peaked T waves. ECG further read by flight/transport nurse as abnormal. Chest x-ray demonstrated congestive heart failure and right pleural effusion. In the emergency room patient was treated for hyperkalemia with Kayexalate, nebulizing treatment with albuterol, 1 ampoule of calcium gluconate and Lasix . Patient also received nitroglycerin cream and admitted for further management. CONSULTANTS: hvac maintenance technician Dr. Morton [facility] COURSE: Patient admitted to telemetry floor. Cloth Trimmer Hand consulted for dialysis. Hemodialysis with ultrafiltration provided. Hyperkalemia was further treated. Supplemental oxygen provided as needed to keep pulse oximetry above 92%. Bronchodilator therapy was on board as needed. Volumes and renal parameters were closely monitored. Electrolytes further corrected as needed. Upon discharge potassium from 6.7 down to 4.6. BUN from 80 down to 53 and creatinine from 11 down to 8.0. Blood culture were negative. Leukocytosis resolved next day, likely reactive. No fevers. Blood pressure was managed with beta-josiah. Pain management was addressed as needed. DVT prophylaxis provided. Patient clinically stabilized and was ready for transfer to [facility] for further management. FINAL DIAGNOSES: Pulmonary edema Fluid overload Hyperkalemia End stage renal disease, on hemodialysis Anasarca PVD with right AKA and left BKA Abnormal EKG DISCHARGE MEDICATIONS: List of medication was sent to accepting facility DISCHARGE INSTRUCTIONS: Patient was transferred to [facility] as per her insurance for further management. I have been assigned to dictate discharge summary for this account.I was not involved in the patient's management. Nita Parham NP Dec 21, 2018 10:40
--- NOTE | 2018-12-21 13:32 | NUR ---
*-* INSURANCE *-* ALL AVAILABLE CLINICALS HAVE BEEN FAXED TO: [facility] REF#[id number] NO BRIDGE TEACHER ASSIGNED YET PH#[phone] FAX#[phone] [place] [phone] REVIEWS/CLINICALS
== END 2018-12-20 20:45 | disposition short-term general hospital (02) | DRG 189 ==
LOC: EDBD 18:07 → EMR 18:21 → 2W 22:30 → EDBEDREQ 23:01 → 2E 12-19 08:57
PROC: 5A1D70Z Performance of Urinary Filtration, Intermittent, Less than 6 Hours Per Day (ICD-10-PCS; principal; 2018-12-18)
DX: J81.0 Acute pulmonary edema (principal); N18.6 End stage renal disease; I12.0 Hypertensive chronic kidney disease with stage 5 chronic kidney disease or end stage renal disease; E87.5 Hyperkalemia; E87.79 Other fluid overload; I73.9 Peripheral vascular disease, unspecified; Z89.512 Acquired absence of left leg below knee; Z89.611 Acquired absence of right leg above knee; R94.31 Abnormal electrocardiogram [ECG] [EKG]; G89.4 Chronic pain syndrome; Z99.2 Dependence on renal dialysis
CPT/HCPCS: 36415; 71045; 80048; 80053; 82550; 82962; 83880; 84484; 85025; 85610; 85730; 87040; 87081; 93005; 94640; 96374; 96375; 99291